=== PATIENT | male | born 1935 | race Caucasian/White ===

== ENCOUNTER → 2020-11-20 | Outpatient (CLI) | payer MEDICARE ==
[~2020-11-20] MED LIST: CALCIUM PO; DIGOX125 MCG PO; ECOTRIN81 MG PO; ELIQUIS2.5 MG PO; LOPRESSOR 25 MG25 MG PO; SYNTHROID25 MCG PO; VITAMIN D31000 UNI1 PO; ZESTRIL2.5 MG PO
== END ==
LOC: KOH-I 15:58
DX: R10.9 Unspecified abdominal pain (principal); N28.89 Other specified disorders of kidney and ureter
CPT/HCPCS: 74018